=== PATIENT | female | born 1955 | race Caucasian/White ===

== ENCOUNTER 2016-10-23 14:15 | Outpatient (CLI) | payer BC | END 2016-10-23 19:27 | disposition home or self-care (01) | LOC: SMA 14:15 | PROVIDERS: ATTEND Specialist | DX: Z12.31 Encounter for screening mammogram for malignant neoplasm of breast (principal) | CPT/HCPCS: 77067; G0202 ==

== ENCOUNTER 2017-12-15 09:48 | Outpatient (CLI) | payer BC | END 2017-12-15 19:48 | disposition home or self-care (01) | LOC: SMA 09:48 | PROVIDERS: ATTEND Specialist | DX: Z12.31 Encounter for screening mammogram for malignant neoplasm of breast (principal) | CPT/HCPCS: 77067 ==

== ENCOUNTER 2019-06-08 12:18 | Outpatient (CLI) | payer BC | END 2019-06-08 21:09 | disposition home or self-care (01) | LOC: SMA 12:18 | PROVIDERS: ATTEND Specialist | DX: Z12.31 Encounter for screening mammogram for malignant neoplasm of breast (principal) | CPT/HCPCS: 77067 ==

== ENCOUNTER 2020-12-13 10:57 | Outpatient (CLI) | payer BC | END 2020-12-13 20:30 | disposition home or self-care (01) | LOC: SMA 10:57 | PROVIDERS: ATTEND Specialist | DX: Z12.31 Encounter for screening mammogram for malignant neoplasm of breast (principal) | CPT/HCPCS: 77067 ==